=== PATIENT | female | born 1980 | race African-American/Black ===

== ENCOUNTER → 2019-07-17 | Outpatient (CLI) | payer OTHER ==
[~2019-07-17] MED LIST: CYCL10TA2 PO; GABA300C18 PO; IBUP-1060 PO
--- NOTE | 2019-07-17 15:38 | PAIN ---
DATE OF SERVICE: 07/17/2019 INITIAL CONSULTATION FOR PAIN CLINIC CHIEF COMPLAINT: Low back and left lower extremity pain. HISTORY OF PRESENT ILLNESS: This is a 38-year-old female who presents with history of pain in the low back and into the left leg and hip since 2003, she had surgery in 2011 while stationed in [place] for radicular pain in the left side as well. The patient reports she did well for a few years and then over the past 3-4 years, the pain has returned in the low back but not as far into the left leg as it was previously just into the hip and into the posterior gluteus, sometimes in the lateral thigh as well as the posterior thigh. The patient reports no loss of motor function, but significant fatigability of the left leg with walking, standing and changing positions. The patient reports it is constant, sharp, stabbing and aching in the low back, left hip and gluteus, especially in the posterior upper thigh. The patient reports it awakens her from sleep at least twice a night, affects her bowel or bladder control but does not cause any incontinence. The patient reports she does affect her ability to walk and she is generally using a cane or walking stick but does not have one with her today. The patient has had previous physical therapy, counseling, chiropractic treatment, exercises and epidural injections, most recently 01/2019 in [place], [place] through the [facility] there, also physical therapy in 2018, chiropractic treatment in [place] as well in 01/2019. The patient has tried muscle relaxers, ibuprofen and gabapentin, none of which seemed to decrease the pain significantly. The patient reports that she does smoke marijuana daily and this does decrease the pain better than the other modalities she has tried. The patient reports her disability rating from 0-10, 10 being the worst, is a 9 with family home responsibilities and life support activities, 8 with recreation and social activity, 10 with sexual behavior, 6 with occupation, and 7 with self-care activities. The patient did have an MRI scan of the lumbar spine dated 04/05/2019 showing prior laminectomy at L5-S1 with prominent generalized bulging of the annulus, most prominent in the vertebral canals down to the right of midline, left subarticular zone L5-S1 appears stenotic as well on the right and presumed protrusion extrusion extends caudally far enough to contact and partially obscured the exiting right S1 nerve root. PAST MEDICAL HISTORY: Significant for hypertension, depression and irritable bowel syndrome. PREVIOUS SURGERY: Includes diskectomy in 2012, and partial thyroidectomy. CURRENT MEDICATIONS: Include gabapentin, cyclobenzaprine and ibuprofen. ALLERGIES: The patient reports no known drug allergies. FAMILY HISTORY: Significant for no major medical problems or conditions she is aware of. SOCIAL HISTORY: The patient does not drink alcohol, does smoke marijuana daily, does not use any other tobacco products. The patient is single, has one child, living at home, lives locally in [place], [place]. Works at the local [employer]. REVIEW OF SYSTEMS: The patient's review of systems is positive for those items as mentioned in the history of present illness. All systems reviewed and otherwise negative. It is complete, full and well documented on the patient's chart. PHYSICAL EXAMINATION: VITAL SIGNS: The patient's blood pressure 133/99, pulse 83, respirations 16, temperature 98.5 degrees Fahrenheit, height is 5 feet 7 inches, weight is 225 pounds. GENERAL: The patient is awake, alert, oriented, appropriate, very pleasant demeanor. HEENT: Exam shows normocephalic, atraumatic. Extraocular movements are intact and symmetrical. Oral cavity: Mucous membranes are moist and pink. Dentition is intact. NECK: Shows anterior throat supple without palpable lymphadenopathy noted. Swallow reflex symmetrical. CHEST: Shows normal on inspection. Breath sounds clear to auscultation bilaterally. HEART: Shows S1, S2 clear. No murmurs auscultated. ABDOMEN: Soft, nontender, nondistended. No palpable organomegaly is noted. No rebound or guarding demonstrated. BACK: Shows spine grossly in the midline. Normal-appearing thoracic kyphosis and lumbar lordotic curvature. Lumbar paraspinous muscle shows symmetrical on inspection, a well-healed surgical scar noted. Lumbar paraspinous muscles are moderately tender with palpation bilaterally, going diffusely without significant radiation. EXTREMITIES: The patient's lower extremities show deep tendon reflexes at 2+ in the patellar, 1+ in tendo-calcaneus tendons. Motor exam is strong with 5/5 dorsiflexion, extension, quadriceps and hamstring flexion symmetrical. Peripheral pulses are 1+ posterior tibia. No peripheral edema is noted bilaterally. Straight leg raise noted to be negative for reproduction of radicular symptoms bilaterally. Gaenslen's and Jamaal's maneuvers are negative bilaterally as well. The patient is able to walk, stand on her toes without significant difficulty or loss of balance, walks with a normal appearing gait for a short distance in the office today, does appear to favor the left lower extremity fairly significantly; however, after walking for more than just a few minutes on her way down the hallway noticeably favoring the left lower extremity, again not using any assistive devices with her today, she generally has a walking stick with her or cane by her report. SKIN: Shows warm and dry, good turgor. No edema. No sores, rashes or bruising throughout. IMPRESSION: 1. This is a 38-year-old female with a long history of low back pain status post laminectomy in 1999 with diskectomy in 2011, pain for about the past 3 years increasing in a radicular fashion in the left lower extremity. 2. MRI scan of lumbar spine as noted. 3. Hypertension. 4. Marijuana use daily. Options were discussed with the patient including conservative medical management, physical therapies and interventional techniques. She would like to pursue conservative measures. We discussed a lumbar traction through physical therapy with the patient and she would like to pursue this. We will make those arrangements. If not significantly improved, we did discuss potential lumbar epidural steroid injection after that, but to try therapy first with traction and will have her follow up once this is completed. The patient also was given Medrol Dosepak with instructions, side effects to be aware of and she will follow up once this is completed also. SERGIO LEOS MD DR: KYE/gordy JOB#: [id number] / [id number]
== END | disposition home or self-care (01) ==
LOC: PNCL 13:00
PROVIDERS: ATTEND Anesthesiology
DX: M54.5 Low back pain (principal); M79.605 Pain in left leg; I10 Essential (primary) hypertension; F12.20 Cannabis dependence, uncomplicated; Z98.890 Other specified postprocedural states
CPT/HCPCS: G0463